=== PATIENT | female | born 1960 | race Caucasian/White ===

== ENCOUNTER 2024-01-28 05:13 | Emergency (ER) | payer OTHER ==
[2024-01-28 06:11] LABS: BASO # 0.02 K/mm3 (0.02-0.10); EOS # 0.12 K/mm3 (0.04-0.40); EOS % 2.1 % (1.0-5.0); HEMATOCRIT 41.7 % (37.0-47.0); HEMOGLOBIN 13.7 g/dL (12.5-16.0); LYMPH# 1.41 K/mm3 (1.50-4.00); MEAN CELL VOLUME 92 fl (78-100); MEAN CORPUSCULAR HEMOGLOBIN 30 pg (27-31); MEAN CORPUSCULAR HGB CONC 33 g/dL (33-37); MEAN PLATELET VOLUME 9.7 fl (7.4-10.4); MONO # 0.37 K/mm3 (0.20-0.80); PLATELET COUNT 239 K/mm3 (130-400); RED BLOOD COUNT 4.55 M/mm3 (4.10-5.30); RED CELL DISTRIBUTION WIDTH 13.3 % (11.5-14.5); WHITE BLOOD COUNT 5.7 K/mm3 (4.8-10.8)
[2024-01-28] MEDS ORDERED: diphenhydrAMINE 50 MG/ML 1 ML VIAL IV ONE (06:15)
[2024-01-28] MEDS ORDERED: Iohexol 300 - 100 ML VIAL IV ONE (06:16)
[2024-01-28 06:22] LABS: ALBUMIN 3.9 g/dL (3.4-4.8)
[2024-01-28 06:24] LABS: CALCIUM 9.3 mg/dL (8.3-10.5)
[2024-01-28 06:27] LABS: TOTAL BILIRUBIN 0.5 mg/dL (0.2-1.2)
[2024-01-28] MEDS ORDERED: PREDNISONE20 M1 PO (07:54)
[2024-01-28 07:55] VITALS: BP 127/74
== END 2024-01-28 07:59 | disposition home or self-care (01) ==
LOC: ED 05:13
PROVIDERS: Family Medicine
DX: R22.9 Localized swelling, mass and lump, unspecified (principal); R21 Rash and other nonspecific skin eruption
CPT/HCPCS: J1200; Q9967